=== PATIENT | female | born 1990 | race Caucasian/White ===

== ENCOUNTER → 2017-02-05 | Outpatient (CLI) | payer OTHER ==
[~2017-02-05] MED LIST: APAP/BUTALBITAL1 TA1 PO; BACTRIM DS 8001 TAB PO; CIPRO 500MG TA500 MG PO; FEMCON FE PO; FLAGYL500 MG PO; FLINTSTONES1 CTB PO; KEFLEX 500MG.500 MG PO; KEFLEX500 MG PO; LANSOPRAZOLE 30 MG OR; LOW DOSE ASPIRI81 MG PO; METRONIDAZOLE500 MG PO; MIRALAX17 GM/DOSE PO; MOTRIN400 MG PO; MOTRIN600 MG PO; NOMEDS *; PERCOCET 5/3251 EACH PO; PREDNISONE 20MG20 MG PO; PRILOSEC20 M1 PO; PYRIDIUM 200MG200 MG PO; ROBINUL 1MG TABL1 MG PO; SULFAMETHOXAZOL1 TA6 PO; TOPIRAMATE50 MG PO; TYLENOL 325MG325 MG PO; TYLENOL W/CODEI1 TA2 PO; TYLENOL W/CODEI1 TAB PO; Tramadol HCl50 MG PO; VICODIN 5/500 T1 TAB PO; VITAMIN B650 MG PO; ZANTAC 150150 MG PO; ZITHROMAX Z PA250 MG PO; ZOFRAN ODT8 MG PO; [UNRECOGNIZED DRUG - OTHER] VG
[2017-02-05 17:04] LABS: LYMPH # 2.5 K/mm3 (0.7-4.5); LYMPH % 30.1 % (10-50.0)
[2017-02-05 17:08] LABS: HEMOGLOBIN 12.6 g/dL (12.2-16.2)
[2017-02-05 17:35] LABS: URINE BILIRUBIN - DIPSTICK NEGATIVE (NEG); URINE BLOOD NEGATIVE (NEG)
[2017-02-05 17:54] LABS: BUN 12 mg/dL (7-18)
[2017-02-05 17:56] LABS: GFR (ESTIMATED) 101 ML/MIN (59-)
== END ==
LOC: LAB 16:36
PROVIDERS: Physician Assistant
DX: R80.9 Proteinuria, unspecified (principal)

== ENCOUNTER → 2017-05-15 | Outpatient (CLI) | payer OTHER ==
--- NOTE | 2017-05-15 16:08 | RADIOLOGY REPORT PS360 ---
[id number] COMPARISON: None HISTORY: Right shoulder pain and instability TECHNIQUE: Following obtaining informed consent under aseptic conditions and local anesthesia with 1% lidocaine using fluoroscopic guidance a 25-gauge needle was inserted into the right shoulder joint capsule at the rotator interval. Approximately 12 mL's of a mixture of Isovue 300, gadolinium, normal saline, and lidocaine was injected and images obtained. The patient tolerated the procedure well without evidence of immediate common locations. Images were obtained and the patient was transferred to the MRI suite. FINDINGS: Contrast easily injects within the joint space. There is no evidence of contrast in the subacromial region that would indicate a rotator cuff tear. IMPRESSION: Negative arthrogram of the right shoulder. No evidence of rotator cuff tear or adhesive capsulitis. MRI report to follow.
--- NOTE | 2017-05-20 06:58 | RADIOLOGY REPORT PS360 ---
MRI-UP EXT ANY JNT W/-RT COMPARISON: Arthrogram of the same day and previous MRI of 03/15/2017 HISTORY: Anterior shoulder instability TECHNIQUE: Please see arthrogram for injection technique. Multiplanar multiecho sequences performed following the intra-articular administration of contrast. FINDINGS: Contrast does not travel to the subacromial region. No evidence of rotator cuff tear. The glenoid labrum has an unremarkable appearance. No evidence of labral tear. There is a suspected HAGL lesion( humeral avulsion of the glenohumeral ligament). The axillary pouch does not have a normal appearance and has a somewhat irregular appearance in keeping with this finding. There is fraying of the inferior glenohumeral ligament. There was contrast extravasation into the subdeltoid region. The bicipital tendon of the long head of biceps has an unremarkable appearance. What is felt to represent the superior glenohumeral ligament appears intact. The middle glenohumeral ligament however not identified and may be torn as well. IMPRESSION: 1. No evidence of rotator cuff tear. 2. No obvious labral tear. 3. Suspected HAGL lesion. 4. Nonvisualization of the middle glenohumeral ligament which may be related to MGL tear as well.
== END ==
LOC: RAD 12:37
DX: M25.311 Other instability, right shoulder (principal)
CPT/HCPCS: A9576; Q9967